=== PATIENT | female | born 1975 | race Hispanic/Latino ===

== ENCOUNTER 2018-01-10 14:10 | Emergency (ER) | payer SELFPAY ==
[2018-01-10] MEDS ORDERED: MULTIPLE VITAMIN INJ 10 ML in SODIUM CHLORIDE 0.9% 1000ML 1,000 ML IVPB ONE (14:45)
[2018-01-10] MEDS ORDERED: MULTIPLE VITAMIN INJ 10 ML, FOLIC ACID INJ 1 MG in SODIUM CHLORIDE 0.9% 1000ML 1,000 ML IVS SCH (15:00)
[2018-01-10] MEDS ORDERED: MULTIPLE VITAMIN 10 ML VIAL ONE (15:01)
[2018-01-10] MEDS ORDERED: SODIUM CHLORIDE 0.9% 1000ML 1,000 ML ONE (15:01)
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
[2018-01-10] MEDS ORDERED: THIAMINE HCL INJ 100 MG/ML VIAL ONE (15:33)
[2018-01-10] MEDS ORDERED: FOLIC ACID INJ 5 MG/ML VIAL ONE ×2 (15:33)
[2018-01-10] MEDS ORDERED: SODIUM CHLORIDE 0.9% 100ML 100 ML IVPB ONE (15:35)
[2018-01-10] MEDS: MULTIPLE VITAMIN INJ 10 ML, FOLIC ACID INJ 1 MG in SODIUM CHLORIDE 0.9% 1000ML 1,000 ML IVS PRN (15:41)
--- NOTE | 2018-01-10 15:45 | CT ---
EXAM DESCRIPTION: Head: Computed Tomography. CLINICAL HISTORY: seizure COMPARISON: None. TECHNIQUE: Non-helical axial scans through the skull and brain, at 5.0 mm intervals, non-contrast. Coronal and sagittal 2.0 mm reconstructions. Total Exam DLP: 752.48 mGy-cm. This exam was performed according to our departmental dose-optimization program which includes automated exposure control, adjustment of the mA and/or kV according to patient size and/or use of iterative reconstruction technique; to reduce radiation dose to as low as reasonably achievable (ALARA). Technically difficult study due to patient motion during the examination. FINDINGS: No hemorrhage, no mass-effect, and no midline shift. Normal elias-white matter differentiation. No abnormal radiodense material in the brain parenchyma. Vascular calcifications not present; physiologic calcifications in the pineal gland and choroid plexus. No effacement or displacement of the ventricles, CSF spaces, or subdural spaces. Cortical sulci are slightly prominent in the frontal and parietal lobes bilaterally. No extra axial fluid collection or hemorrhage. No gross abnormalities of the bony calvarium. Included paranasal sinuses and mastoid air cells are well - aerated. IMPRESSION: 1. No hemorrhage, no mass effect, no midline shift. No hydrocephalus. No significant atherosclerotic calcifications. 2. CT scans are insensitive for detecting small CVAs in the first 24 hours after onset. Evaluation of the brain stem is also limited. If symptoms persist, consider MRI scan of the brain with diffusion imaging. Electronically signed by: Carlos Toth MD 01/10/2018 3:44 PM SALES PERFORMANCE MANAGER
[2018-01-10] MEDS: THIAMINE HCL INJ 100 MG in SODIUM CHLORIDE 0.9% 100ML 100 ML IVPB SCH (16:22)
[2018-01-10] MEDS: chlordiazePOXIDE HCL 25 MG CAP PO ONE (16:53)
[2018-01-10 19:11] VITALS: BP 169/80; TEMP 99; O2SAT 97
== END 2018-01-10 18:42 | disposition home or self-care (01) ==
LOC: ER 14:10
DX: F10.239 Alcohol dependence with withdrawal, unspecified (principal); G40.89 Other seizures; I44.7 Left bundle-branch block, unspecified
CPT/HCPCS: 36415; 36416; 70450; 80053; 82948; 83735; 84484; 85025; 93005; J2060; J3411; J7030; J7050

== ENCOUNTER 2019-05-01 13:55 | Emergency (ER) | payer SELFPAY ==
[2019-05-01] MEDS ORDERED: SODIUM CHLORIDE 0.9% 1000ML 1,000 ML IVS ONE (14:14)
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
[2019-05-01 14:30] VITALS: TEMP 99.1
[2019-05-01 16:32] VITALS: BP 112/67; O2SAT 95
== END 2019-05-01 16:33 | disposition home or self-care (01) ==
LOC: ER 13:55
DX: G40.909 Epilepsy, unspecified, not intractable, without status epilepticus (principal); F10.10 Alcohol abuse, uncomplicated; Z87.891 Personal history of nicotine dependence; Z79.899 Other long term (current) drug therapy
CPT/HCPCS: 80053; 80307; 80320; 81001; 85025; 87086; 93005; J2060; J7030

== ENCOUNTER 2020-02-27 17:00 | Emergency (ER) | payer SELFPAY ==
[2020-02-27] MEDS ORDERED: SODIUM CHLORIDE 0.9% (FLUSH) 10 ML SYG IV PRN (17:36)
[2020-02-27] MEDS ORDERED: MULTIPLE VITAMIN INJ 10 ML, FOLIC ACID INJ 1 MG in SODIUM CHLORIDE 0.9% 1000ML 1,000 ML IVS ONE (17:39)
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
[2020-02-27] MEDS ORDERED: THIAMINE HCL INJ 100 MG/ML VIAL IV SCH (18:00)
[2020-02-27] MEDS ORDERED: SODIUM CHLORIDE 0.9% 1000ML 1,000 ML ONE (18:10)
[2020-02-27] MEDS ORDERED: MULTIPLE VITAMIN 10 ML VIAL ONE (18:11)
[2020-02-27] MEDS ORDERED: FOLIC ACID INJ 5 MG/ML VIAL ONE (18:17)
[2020-02-27 18:35] VITALS: O2SAT 95
[2020-02-27 21:21] VITALS: BP 122/68; TEMP 98.2
== END 2020-02-27 21:00 | disposition home or self-care (01) ==
LOC: ER 17:00
DX: F10.231 Alcohol dependence with withdrawal delirium (principal); R56.9 Unspecified convulsions; R00.0 Tachycardia, unspecified; I44.7 Left bundle-branch block, unspecified; Z87.891 Personal history of nicotine dependence
CPT/HCPCS: 80053; 80307; 80320; 80329; 81001; 82550; 82553; 84484; 84703; 85025; 87086; 93005; J2060; J3411; J7030

== ENCOUNTER 2020-11-24 15:24 | Emergency (ER) | payer SELFPAY ==
[2020-11-24] MEDS ORDERED: SODIUM CHLORIDE 0.9% (FLUSH) 10 ML SYG IV PRN (15:43)
[2020-11-24] MEDS ORDERED: SODIUM CHLORIDE 0.9% 1000ML 1,000 ML IVS PRN (15:43)
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
--- NOTE | 2020-11-24 17:09 | CT ---
EXAM DESCRIPTION: Head CLINICAL HISTORY: 45 years Female seizure TECHNIQUE: Axial noncontrast CT head with coronal and sagittal reformats. All CT scans at this facility use dose modulation, iterative reconstruction, and/or weight based dosing when appropriate to reduce radiation dose to as low as reasonably achievable. COMPARISON: January 10, 2018. FINDINGS: Brain: No intracranial hemorrhage, midline shift, mass or mass effect. No obvious large acute territorial infarction. Ventricles: No hydrocephalus. Orbits: Unremarkable. Sinuses: Visualized portions are clear. Mastoid: Clear. Osseous: Unremarkable. Soft tissues:Unremarkable. IMPRESSION: No acute CT findings. Electronically signed by: Terell Gonzalez MD 11/24/2020 5:07 PM ENVIRONMENTAL ENGINEERING ASSISTANT
[2020-11-24] MEDS ORDERED: SODIUM CHLORIDE 0.9% 1000ML 1,000 ML IVS ONE ×2 (17:25→19:19)
[2020-11-24 23:44] VITALS: BP 114/64; TEMP 97.5; O2SAT 95
== END 2020-11-24 23:44 | disposition short-term general hospital (02) ==
LOC: ER 15:24
DX: F10.239 Alcohol dependence with withdrawal, unspecified (principal); R56.9 Unspecified convulsions; R00.0 Tachycardia, unspecified; I44.7 Left bundle-branch block, unspecified; E87.2 Acidosis; Z87.891 Personal history of nicotine dependence; Z20.828 Contact with and (suspected) exposure to other viral communicable diseases
CPT/HCPCS: 36415; 36600; 70450; 80053; 80320; 80329; 82550; 82553; 82803; 82805; 83605; 84484; 84703; 85025; 85610; 85730; 87635; 93005; J2060; J7030